=== PATIENT | male | born 1985 | race African-American/Black ===

== ENCOUNTER 2019-02-22 21:40 | Emergency (ER) | payer SELFPAY ==
[~2019-02-22] VITALS: Ht 180.3 cm; Wt 78.0 kg
[2019-02-22] MEDS ORDERED: ALBUTEROL (0.083%) 2.5MG/3ML NEB HHN STA (22:55)
[2019-02-22] MEDS ORDERED: PREDNISONE 20MG TABLET PO STA (22:55)
[2019-02-22] MEDS ORDERED: IPRATROPIUM BROMIDE (0.02%) 0.5MG/2.5ML NEB HHN STA (22:55)
[2019-02-23 00:32] VITALS: BP 146/92
== END 2019-02-23 00:33 | disposition home or self-care (01) ==
LOC: ER 21:40
DX: J45.901 Unspecified asthma with (acute) exacerbation (principal); F17.210 Nicotine dependence, cigarettes, uncomplicated; Z71.6 Tobacco abuse counseling
CPT/HCPCS: 94640; 99283; 99406; J7512; J7611

== ENCOUNTER 2019-06-28 01:12 | Emergency (ER) | payer SELFPAY ==
[~2019-06-28] VITALS: Ht 172.7 cm; Wt 77.0 kg
[2019-06-28] MEDS ORDERED: SODIUM CHLORIDE 0.9% 1,000 ML IV ONE (04:53)
[2019-06-28 05:33] LABS: BASOPHILS % 0.8 % (0.0-2.0); EOSINOPHILS % 3.7 % (0.0-5.0); HEMATOCRIT. 42.1 % (42.0-52.0); LYMPHOCYTES % 23.3 % (20.0-50.0); MEAN CORPUSCULAR HEMOGLOBIN 28.1 pg (28.0-32.0); MEAN CORPUSCULAR VOLUME 84.2 fL (80.0-94.0); MEAN PLATELET VOLUME 10.1 fl (7.4-10.4); MONOCYTES % 6.3 % (2.0-8.0); NEUTROPHILS % 65.9 % (40.0-76.0); PLATELET 130 x1000/uL (130-400); RED CELL DISTRIBUTION WIDTH 14.1 % (11.6-14.6)
[2019-06-28 05:36] LABS: CHLORIDE 103 mEq/L (98-107)
[2019-06-28 05:41] LABS: ETHANOL BLOOD < 10 mg/dL
[2019-06-28 07:21] VITALS: BP 109/56
== END 2019-06-28 07:43 | disposition home or self-care (01) ==
LOC: ER 01:12
DX: F15.129 Other stimulant abuse with intoxication, unspecified (principal); R41.82 Altered mental status, unspecified; F41.9 Anxiety disorder, unspecified; J45.909 Unspecified asthma, uncomplicated; R68.2 Dry mouth, unspecified; R00.0 Tachycardia, unspecified
CPT/HCPCS: 36415; 70450; 80053; 80307; 80320; 80329; 85025; 93005; 99284; J7030; G0480

== ENCOUNTER 2021-11-06 06:31 | Emergency (ER) | payer SELFPAY ==
[~2021-11-06] VITALS: Ht 180.3 cm; Wt 79.0 kg
[2021-11-06] MEDS ORDERED: ALBUTEROL (0.083%) 2.5MG/3ML NEB HHN STA (06:46)
[2021-11-06] MEDS ORDERED: PREDNISONE 20MG TABLET PO STA (06:46)
[2021-11-06] MEDS ORDERED: IPRATROPIUM BROMIDE (0.02%) 0.5MG/2.5ML NEB HHN STA (06:46)
[2021-11-06] MEDS ORDERED: P50 PO (09:22)
[2021-11-06] MEDS ORDERED: ALBU6.7H9 INH (09:22)
[2021-11-06 11:30] VITALS: BP 147/62
== END 2021-11-06 11:50 | disposition home or self-care (01) ==
LOC: ER 06:33
DX: J45.901 Unspecified asthma with (acute) exacerbation (principal); F15.10 Other stimulant abuse, uncomplicated
CPT/HCPCS: 71045; 99283; J7512

== ENCOUNTER 2022-02-23 03:55 | Emergency (ER) | payer SELFPAY ==
[~2022-02-23] VITALS: Ht 180.3 cm; Wt 80.0 kg
[~2022-02-23 03:55] MED LIST: ALBU6.7H9 INH; P50 PO
[2022-02-23 03:59] VITALS: BP 146/80
[2022-02-23] MEDS ORDERED: KETOROLAC 60MG/2ML VIAL IM ONE (07:45)
== END 2022-02-23 09:41 | disposition home or self-care (01) ==
LOC: ER 03:55
DX: R07.89 Other chest pain (principal); R07.81 Pleurodynia; J45.909 Unspecified asthma, uncomplicated; F15.10 Other stimulant abuse, uncomplicated
CPT/HCPCS: 71101; 93005; 96372; 99283; J1885

== ENCOUNTER 2024-10-07 15:00 | Emergency (ER) | payer MEDICAID ==
[~2024-10-07] VITALS: Ht 175.3 cm; Wt 75.0 kg
[~2024-10-07 15:00] MED LIST changes: +ALBU6.7H3 INH; -ALBU6.7H9 INH
[2024-10-07 15:01] VITALS: O2SAT 97
[2024-10-07] MEDS: ONDANSETRON 4MG ODT PO STA (15:59)
[2024-10-07] MEDS: MAGNESIUM/ALUMINUM HYDROXIDE/SIMETHICONE 30ML UDC PO STA (15:59)
[2024-10-07 16:58] LABS: HEMATOCRIT. 48.2 % (42.0-52.0); HEMOGLOBIN. 15.6 g/dL (14.0-18.0); MEAN CORPUSCULAR HEMOGLOBIN 28.3 pg (28.0-32.0); MEAN CORPUSCULAR HGB CONC 32.3 g/dL (31.0-37.0); MEAN CORPUSCULAR VOLUME 87.5 fL (80.0-94.0); MEAN PLATELET VOLUME 10.5 fl (7.4-10.4); PLATELET 127 x1000/uL (130-400); RED CELL DISTRIBUTION WIDTH 14.3 % (11.6-14.6); WHITE BLOOD COUNT 12.5 x1000/uL (4.5-11.0)
[2024-10-07 17:00] LABS: DIFFERENTIAL COMMENT 1
[2024-10-07 17:06] LABS: CHLORIDE 106 mEq/L (98-107); POTASSIUM 3.8 mEq/L (3.5-5.1); SODIUM 140 mEq/L (136-145)
[2024-10-07 17:07] LABS: CARBON DIOXIDE 24 mEq/L (21-32)
[2024-10-07 17:08] LABS: CALCIUM 9.1 mg/dL (8.7-10.4)
[2024-10-07 17:12] LABS: CREATININE 0.7 mg/dL (0.6-1.3)
[2024-10-07 17:13] LABS: GLUCOSE 92 mg/dL (70-105); UREA NITROGEN BLOOD 11 mg/dL (9-23)
[2024-10-07 17:14] LABS: ALANINE AMINOTRANSFERASE 26 IU/L (10-49); ALBUMIN 4.4 g/dL (3.2-4.8); ASPARTATE AMINOTRANSFERASE 39 IU/L (<34)
[2024-10-07 17:15] LABS: BILIRUBIN DIRECT 0.3 mg/dL (<=3.0); BILIRUBIN TOTAL 0.9 mg/dL (0.1-1.0); PROTEIN TOTAL 6.9 g/dL (6.0-8.3)
[2024-10-07 18:11] LABS: PLATELET ESTIMATE SLIGHTLY DECREASED
[2024-10-07] MEDS ORDERED: CIPR-263 MT (18:48)
[2024-10-07] MEDS ORDERED: ONDA-239 PO (18:48)
[2024-10-07] MEDS: SODIUM CHLORIDE 0.9% 1,000 ML IV ONE (23:58)
[2024-10-08 02:48] VITALS: BP 132/79; PULSE 89; RESP 20; TEMP 36.61404; O2SAT 97
== END 2024-10-08 02:49 | disposition home or self-care (01) ==
LOC: ER 15:00
DX: R10.84 Generalized abdominal pain (principal); R11.10 Vomiting, unspecified; J45.909 Unspecified asthma, uncomplicated; F15.10 Other stimulant abuse, uncomplicated; Z79.52 Long term (current) use of systemic steroids
CPT/HCPCS: 99284; 74176; 96360; 80076; 80048; 83690; 85025; 36415; Q0162; J7030